=== PATIENT | male | born 1945 | race Hispanic/Latino ===

== ENCOUNTER 2021-08-24 19:36 | Inpatient (IN) | payer MEDICARE, MEDICAID ==
[~2021-08-24] VITALS: Ht 172.7 cm; Wt 76.2 kg
[2021-08-24 20:04] LABS: BASOPHILS % 0.3 % (0.0-1.0); HEMOGLOBIN 11.6 g/dL (14.0-18.0); LYMPHOCYTES # (AUTO) 0.7 (1.0-3.2); LYMPHOCYTES % 19.4 % (18.0-39.1); MEAN CORPUSCULAR HEMOGLOBIN 30.4 pg (28-32); MEAN CORPUSCULAR HGB CONC 34.1 g/dL (31-35); MONOCYTES # (AUTO) 0.1 (0.2-0.8); MONOCYTES % 3.4 % (4.4-11.3); NEUTROPHILS # (AUTO) 2.9 (2.1-6.9); NEUTROPHILS % 76.6 % (38.7-80.0); PLATELET COUNT 189 x10e3/uL (140-360); RED BLOOD COUNT 3.82 x10e6/uL (4.3-5.7); RED CELL DISTRIBUTION WIDTH 12.8 % (11.7-14.4)
[2021-08-24 20:18] LABS: INR 0.98; PROTHROMBIN TIME 13.9 seconds (11.9-14.5)
[2021-08-24 20:19] LABS: PARTIAL THROMBOPLASTIN TIME 30.9 seconds (23.8-35.5)
[2021-08-24 20:28] LABS: ANION GAP 15.7 mmol/L (8-16); CALCIUM 8.8 mg/dL (8.4-10.2); CREATININE, SERUM 0.79 mg/dL (0.72-1.25); POTASSIUM 3.7 mmol/L (3.5-5.1)
[2021-08-24 20:34] LABS: CREATINE KINASE MB 1.5 ng/mL (0-5.0)
[2021-08-24] MEDS ORDERED: DEXTROSE 50% SYRINGE 50 ML IV PRN (21:45)
[2021-08-24] MEDS ORDERED: ONDANSETRON HCL INJ 2MG/ML 2ML 2 MG/ML VIAL IV PRN (21:45)
[2021-08-24] MEDS ORDERED: SODIUM CHLORIDE FLUSH 10 ML SYR INJ PRN (21:45)
[2021-08-24] MEDS: INSULIN REGULAR, HUMAN 100 UNIT/1 ML SQ SCH (22:16)
[2021-08-24 23:20] VITALS: BP 127/82
[2021-08-24 23:21] VITALS: BP 127/82
[2021-08-24 23:28] VITALS: BP 127/82
[2021-08-25] VITALS (7 sets, daily range): BP systolic 127–144; BP diastolic 69–81
[2021-08-25 05:27] LABS: BASOPHILS % 0.2 % (0.0-1.0); HEMATOCRIT 31.8 % (38.2-49.6); HEMOGLOBIN 11.1 g/dL (14.0-18.0); LYMPHOCYTES # (AUTO) 0.9 (1.0-3.2); LYMPHOCYTES % 18.9 % (18.0-39.1); MEAN CORPUSCULAR HEMOGLOBIN 30.5 pg (28-32); MEAN CORPUSCULAR HGB CONC 34.9 g/dL (31-35); MEAN CORPUSCULAR VOLUME 87.4 fL (81-99); MONOCYTES # (AUTO) 0.3 (0.2-0.8); MONOCYTES % 6.6 % (4.4-11.3); NEUTROPHILS # (AUTO) 3.7 (2.1-6.9); NEUTROPHILS % 73.9 % (38.7-80.0); PLATELET COUNT 227 x10e3/uL (140-360); RED BLOOD COUNT 3.64 x10e6/uL (4.3-5.7); RED CELL DISTRIBUTION WIDTH 12.5 % (11.7-14.4)
[2021-08-25 05:58] LABS: ALBUMIN 3.7 g/dL (3.5-5.0); ANION GAP 14.4 mmol/L (8-16); CALCIUM 9.1 mg/dL (8.4-10.2); CHOL/HDL RATIO 3.8 (3.9-4.7); CREATININE, SERUM 0.72 mg/dL (0.72-1.25); POTASSIUM 3.4 mmol/L (3.5-5.1)
[2021-08-25 06:40] LABS: CREATINE KINASE MB 1.6 ng/mL (0-5.0)
[2021-08-25] MEDS: INSULIN REGULAR, HUMAN 100 UNIT/1 ML SQ SCH ×4 (07:30→21:00)
[2021-08-25] MEDS ORDERED: METFORMIN HCL500 MG PO (09:31)
[2021-08-25] MEDS ORDERED: XARELTO10 MG PO (09:31)
[2021-08-25] MEDS ORDERED: SIMVASTATIN20 MG PO (09:31)
[2021-08-25] MEDS ORDERED: METOPROLOL SUCC25 MG PO (09:31)
[2021-08-25] MEDS ORDERED: NAMENDA5 MG PO (09:31)
[2021-08-25] MEDS ORDERED: XYZAL5 MG PO (09:31)
[2021-08-25] MEDS ORDERED: ENTRESTO 49 MG1 EACH PO (09:31)
[2021-08-25] MEDS ORDERED: ARICEPT5 MG PO (09:31)
[2021-08-25] MEDS: METOPROLOL SUCCINATE 25 MG TAB XL PO SCH (12:42)
[2021-08-25] MEDS ORDERED: POTASSIUM CHLORIDE 20 MEQ TAB CR PO NR (13:20)
[2021-08-25 13:59] LABS: CREATINE KINASE MB 1.4 ng/mL (0-5.0)
[2021-08-25 14:16] LABS: CHOL/HDL RATIO 4.1 (3.9-4.7)
[2021-08-25 14:35] LABS: THYROID STIMULATING HORMONE 0.24 uIU/mL (0.350-4.940)
[2021-08-25] MEDS: SODIUM BICARBONATE 650 MG TAB PO SCH ×2 (14:47→16:51)
[2021-08-25] MEDS: SACUBITRIL/VALSARTAN 1 EACH TABLET PO SCH (16:51)
[2021-08-25] MEDS: XARELTO 2.5 MG PO SCH (16:52)
[2021-08-25] MEDS ORDERED: METFORMIN HCL 500 MG TAB PO SCH (17:00)
[2021-08-25] MEDS: SIMVASTATIN 20 MG TAB PO SCH (21:32)
[2021-08-26] VITALS: BP 135/77
[2021-08-26 04:00] VITALS: BP 126/75
[2021-08-26] MEDS: INSULIN REGULAR, HUMAN 100 UNIT/1 ML SQ SCH ×4 (07:30→20:22)
[2021-08-26 08:00] VITALS: BP 130/75
[2021-08-26] MEDS: XARELTO 2.5 MG PO SCH ×2 (08:49→17:25)
[2021-08-26] MEDS: MEMANTINE 10 MG TAB PO SCH (08:49)
[2021-08-26] MEDS: SODIUM BICARBONATE 650 MG TAB PO SCH ×2 (08:49→17:26)
[2021-08-26] MEDS: SACUBITRIL/VALSARTAN 1 EACH TABLET PO SCH ×2 (08:49→17:25)
[2021-08-26] MEDS: METOPROLOL SUCCINATE 25 MG TAB XL PO SCH (08:49)
[2021-08-26] MEDS: DONEPEZIL HCL 5 MG TAB PO SCH (08:49)
[2021-08-26] MEDS ORDERED: ONDANSETRON HCL 4 MG ORAL DISINTEGRATING TAB PO PRN (09:15)
[2021-08-26] MEDS ORDERED: REGADENOSON 0.4 MG/5 ML SYR IV ONE (11:07)
[2021-08-26] MEDS ORDERED: CHLORDIAZEPOXIDE HCL 25 MG CAP PO PRN (16:00)
[2021-08-26] MEDS ORDERED: DEXTROSE 5%/0.9% SOD CHL 1,000 ML IV SCH (16:00)
[2021-08-26 16:22] VITALS: BP 110/70
[2021-08-26 17:59] VITALS: BP 110/70
[2021-08-26 20:00] VITALS: BP 138/80
[2021-08-26] MEDS: SIMVASTATIN 20 MG TAB PO SCH (20:23)
[2021-08-27] VITALS (15 sets, daily range): BP systolic 118–142; BP diastolic 69–86
[2021-08-27 07:24] LABS: MAGNESIUM 1.9 MG/DL (1.3-2.1); PHOSPHORUS 3.8 MG/DL (2.3-4.7); POTASSIUM 3.5 mmol/L (3.5-5.1)
[2021-08-27] MEDS: INSULIN REGULAR, HUMAN 100 UNIT/1 ML SQ SCH (07:30)
[2021-08-27] MEDS ORDERED: LIDOCAINE HCL 2% LOCAL 20 ML VIAL ONE (08:41)
[2021-08-27] MEDS ORDERED: HEPARIN SOD (PORCINE) 1000 UNIT/ML 30ML ONE (08:41)
[2021-08-27] MEDS ORDERED: HEPARIN SOD/SOD CHLORIDE 2,000 ML ONE (08:41)
[2021-08-27] MEDS ORDERED: SODIUM CHLORIDE 0.9% 1000ML 1,000 ML ONE (08:42)
[2021-08-27] MEDS ORDERED: IOPAMIDOL 370 MG/ML 100 ML INFUS..BTL INJ ONE (08:42)
[2021-08-27] MEDS ORDERED: VERAPAMIL HCL 2.5 MG/ML 2 ML VIAL ONE (08:43)
[2021-08-27] MEDS ORDERED: NITROGLYCERIN/D5W 200 MCG/ML 250 ML ONE (08:43)
[2021-08-27] MEDS ORDERED: FENTANYL CITRATE/PF 100MCG/2 ML INJ ONE (08:44)
[2021-08-27] MEDS ORDERED: MIDAZOLAM HCL 2 MG/2 ML VIAL ONE (08:44)
[2021-08-27] MEDS: MEMANTINE 10 MG TAB PO SCH (09:00)
[2021-08-27] MEDS: SACUBITRIL/VALSARTAN 1 EACH TABLET PO SCH (09:00)
[2021-08-27] MEDS: XARELTO 2.5 MG PO SCH (09:00)
[2021-08-27] MEDS: DONEPEZIL HCL 5 MG TAB PO SCH (09:00)
[2021-08-27] MEDS: SODIUM BICARBONATE 650 MG TAB PO SCH (09:00)
[2021-08-27] MEDS ORDERED: AMIODARONE HCL 200 MG TAB PO SCH (11:00)
[2021-08-27] MEDS ORDERED: AMIODARONE HCL200 MG PO (13:47)
== END 2021-08-27 14:40 | disposition home or self-care (01) | DRG 286 ==
LOC: ER 19:55 → ERHOLD 21:53 → MED/SURG 22:59 → INTOOBSV 08-25 13:26 → OBSVTOIN 08-25 13:26
PROVIDERS: ADMIT Internal Medicine; ATTEND Internal Medicine
PROC: 4A023N7 Measurement of Cardiac Sampling and Pressure, Left Heart, Percutaneous Approach (ICD-10-PCS; principal; 2021-08-25)
PROC: B2111ZZ Fluoroscopy of Multiple Coronary Arteries using Low Osmolar Contrast (ICD-10-PCS; 2021-08-25)
PROC: B2151ZZ Fluoroscopy of Left Heart using Low Osmolar Contrast (ICD-10-PCS; 2021-08-25)
DX: I49.01 Ventricular fibrillation (principal); I50.43 Acute on chronic combined systolic (congestive) and diastolic (congestive) heart failure; E87.2 Acidosis; I11.0 Hypertensive heart disease with heart failure; E78.5 Hyperlipidemia, unspecified; Z87.891 Personal history of nicotine dependence; E11.9 Type 2 diabetes mellitus without complications; F03.90 Unspecified dementia, unspecified severity, without behavioral disturbance, psychotic disturbance, mood disturbance, and anxiety; I25.2 Old myocardial infarction; I25.10 Atherosclerotic heart disease of native coronary artery without angina pectoris; R94.39 Abnormal result of other cardiovascular function study; Z20.822 Contact with and (suspected) exposure to COVID-19
CPT/HCPCS: 36415; 70450; 71045; 76937; 78452; 80053; 80061; 82550; 82553; 82948; 83036; 83735; 84100; 84132; 84443; 84484; 85025; 85610; 85730; 93005; 93017; 93306; 93458; 99152; 99285; A9502; C1769; C1887; G0378; J1644; J1817; J2001; J2250; J3010; J7030; Q9967; U0002